=== PATIENT | male | born 1985 | race Caucasian/White ===

== ENCOUNTER → 2017-06-05 10:39 | Outpatient (CLI) | payer SELFPAY | PROVIDERS: PCP Nurse Practitioner Family; Visit Provider Nurse Practitioner Family | DX: Z02.4 Encounter for examination for driving license (principal) ==

== ENCOUNTER 2017-07-26 21:34 | Emergency (ER) | payer OTHER, SELFPAY ==
[2017-07-26 21:36] VITALS: BP 138/87; PULSE 88; RESP 18; TEMP 36.7; O2SAT 100; BMI 28.7
--- NOTE | 2017-07-26 21:45 | XR_ITS ---
XR chest 2V COMPARISON: PA and lateral chest 04/24/2015 HISTORY: Chest pain TECHNIQUE: PA and lateral chest FINDINGS: This is a somewhat poor inspiration however lung omalley are clear of infiltrate. Cardiac silhouette and vascularity are normal. There is minimal scarring or atelectasis at the left base. IMPRESSION: Minimal left basilar atelectasis or scarring otherwise negative chest
[2017-07-26 22:08] LABS: Basophils # 0.1 K/mm3 (0-0.2); Basophils % 0.8 % (0.1-2.0); Eosinophils # 0.4 K/mm3 (0.0-0.4); Eosinophils % 4.2 % (0.1-12.0); Hematocrit 43.6 % (42.0-52.0); Hemoglobin 14.1 g/dL (14.1-18.0); Lymphocytes # 3.9 K/mm3 (0.7-4.5); Lymphocytes % 39.2 K/mm3 (10-50); Mean Corpuscular HGB Conc 32.3 g/dL (31.8-35.4); Mean Corpuscular Hemoglobin 28.4 pg (27.0-31.2); Mean Corpuscular Volume 87.8 fl (80-94); Mean Platelet Volume 8.6 fl (7.4-10.4); Monocytes # 0.5 K/mm3 (0.1-1.0); Monocytes % 5.2 % (1.7-9.3); Neutrophils # 5.1 K/mm3 (1.8-7.8); Neutrophils % 50.6 % (37.0-80.0); Platelet Count 263 K/mm3 (142-424); Red Blood Count 4.97 M/mm3 (4.60-6.20); Red Cell Distribution Width 13.2 % (11.5-17.5)
--- NOTE | 2017-07-26 22:27 | HMH.EDCP ---
ED Disposition Clinical Impression: Chest pain Qualifiers: Chest pain type: precordial pain Qualified Code(s): R07.2 - Precordial pain Disposition: Home, Self-Care Condition on Discharge: Good Instructions: DI for Chest Pain Additional Instructions: see card in am at 0900 Referrals: Denisha Maddox PA [Primary Care Provider] - - Critical Care Critical Care Time: No Attestation: On 07/26/17, the high probability of a clinically significant, sudden or life threatening deterioration of the following system(s) required my full and direct attention, intervention and personal management. The time I documented below is in addition to time spent performing reported procedures but includes the following listed in this critical care notation. Medical Decision Making - Medical Records Medical records reviewed: Yes: I reviewed the patient's medical records. Vital Signs: 07/26/17 21:36 07/26/17 22:49 Temperature 98.1 F Temperature Source Oral Pulse Rate [Right Radial] 88 64 Respiratory Rate 18 16 Blood Pressure [Right Arm] 138/87 125/64 Blood Pressure Mean [Right Arm] 104 84 Blood Pressure Source [Right Arm] Automatic Cuff Blood Pressure Position [Right Arm] Sitting Supine 02 Sat by Pulse Oximetry 100 94 L Oxygen Delivery Method Room Air Room Air - Lab Data Lab results reviewed: Yes: I reviewed the patient's lab results. Lab Results 07/26/17 21:54: WBC 10.0, RBC 4.97, Hgb 14.1, Hct 43.6, MCV 87.8, MCH 28.4, MCHC 32.3, RDW 13.2, Plt Count 263, MPV 8.6, Neut % (Auto) 50.6, Lymph % (Auto) 39.2, [place] % (Auto) 5.2, Eos % (Auto) 4.2, Baso % (Auto) 0.8, Neut # (Auto) 5.1, Lymph # (Auto) 3.9, [place] # (Auto) 0.5, Eos # (Auto) 0.4, Baso # (Auto) 0.1 07/26/17 21:54: Sodium 145, Potassium 3.7, Chloride 108 H, Carbon Dioxide 28, Anion Gap 12.7, BUN 13, Creatinine 0.92, Estimated Creat Clear 148, Estimated GFR 95, Est GFR ( Amer) 115, Glucose 112 H, Calcium 8.2 L, Total Bilirubin 0.2, AST 20, ALT 48, Alkaline Phosphatase 67, Total Creatine Kinase 193, CK-MB (CK-2) 0.7, CK-MB (CK-2) Rel Index 0.4, Troponin I < 0.02, Total Protein 6.7, Albumin 3.4, Globulin 3.3 H, Albumin/Globulin Ratio 1.0 L 07/26/17 21:54: Triglycerides 213 H, Cholesterol 180, LDL Cholesterol 98, VLDL Cholesterol 43 H, HDL Cholesterol 39, Cholesterol/HDL Ratio 4.6 H 07/26/17 21:54: Hemoglobin A1c 5.9 Result diagrams: 07/26/17 21:54 07/26/17 21:54 Orders (Tests/Meds): ED MEDICATIONS Discontinued Medications Generic Name Dose Route Start Last Admin Trade Name Freq PRN Reason Stop Dose Admin Aspirin 324 mg 07/26/17 22:06 07/26/17 22:06 Aspirin 81mg Chewable Tablet PO 07/26/17 22:07 324 mg ONCE ONE Administration Nitroglycerin 0.4 mg 07/26/17 22:34 07/26/17 22:35 Nitrostat 0.4mg Sl Tablet SL 07/26/17 22:35 0.4 mg ONCE ONE Administration Nitroglycerin 0.4 mg 07/26/17 22:42 07/26/17 22:42 Nitrostat 0.4mg Sl Tablet SL 07/26/17 22:43 0.4 mg ONCE ONE Administration Nitroglycerin 1 gm 07/26/17 22:52 07/26/17 22:57 Nitroglycerin 1 Inch Oint Udp TD 07/26/17 22:53 1 gm ONCE ONE Administration ORDERS Category Date Time Status XR chest 2V Stat Exams 07/26/17 21:45 Taken Troponin I Timed Lab 07/26/17 23:59 Received ECG Request by /Lisa Stat Y 07/26/17 21:45 Ordered - Radiology Data #1 Image(s): Chest Image Reviewed: Yes I reviewed the patient's radiology image Preliminary Findings: Normal/NAD - ECG Data Tracing #1 I reviewed this ECG and interpreted as documented below: Normal Sinus Rhythm: Yes Ischemic changes: non-specific ST-T wave changes - Rocael Inquiry Pt receiving controlled substance: No Chest Pain HPI - General Chief Complaint: Chest Pain Stated Complaint: chest pain Time Seen by Provider: 07/26/17 22:27 Mode of Arrival: Ambulatory Source of Information: Patient, Spouse, Medical Record Limitations: No Limitations Description of Symptoms (Recall
[2017-07-26 22:32] LABS: Alanine Aminotransferase 48 U/L (12-78); Albumin Level 3.4 gm/dL (3.4-5.0); Alkaline Phosphatase 67 U/L (46-116); Anion Gap 12.7 mEq/L (5-15); Aspartate Amino Transferase 20 U/L (15-37); Bilirubin,Total 0.2 mg/dL (0.2-1.0); Blood Urea Nitrogen 13 mg/dL (7-18); CKMB Relative Index 0.4 U/L (0-4.0); Calcium 8.2 mg/dL (8.5-10.1); Carbon Dioxide 28 mmol/L (21.0-32.0); Chloride 108 mmol/L (98-107); Creatine Kinase 193 U/L (39-308); Creatine Kinase MB 0.7 mg/ml (0.0-3.6); Creatinine Clearance Estimated 148 mL/min (0-300); Creatinine,Serum 0.92 mg/dL (0.70-1.30); Estimated Glomerular Filt Rate 95 ml/min (>60); GFR (African American) 115 ML/MIN (>60); Globulin 3.3 gm/dl (1.3-3.2); Glucose 112 mg/dL (74-106); Potassium 3.7 mmoL/L (3.5-5.1); Sodium 145 mmol/L (136-145); Total Protein,Serum 6.7 gm/dL (6.4-8.2); Troponin I < 0.02 ng/ml (0.00-0.06)
[2017-07-26 22:45] LABS: Chol/HDL Ratio 4.6 (1-3.5); Cholesterol 180 mg/dL (140-200); HDL Cholesterol 39 mg/dL (27-67); LDL Cholesterol 98 mg/dL (0-130); Triglycerides 213 mg/dL (30-200); VLDL Cholesterol 43 mg/dL (0-40)
[2017-07-26 22:49] VITALS: BP 125/64; PULSE 64; RESP 16; O2SAT 94
--- NOTE | 2017-07-26 23:05 | PC.NURSE ---
DR JOE SPEAKING WITH DR MCKENZIE
[2017-07-27 00:04] LABS: Hemoglobin A1C 5.9 % (0.0-7.0)
[2017-07-27 00:35] LABS: Troponin I < 0.02 ng/ml (0.00-0.06)
[2017-07-27 00:49] VITALS: BP 116/68; PULSE 68; RESP 18; TEMP 36.7; O2SAT 98
== END 2017-07-27 00:49 | disposition home or self-care (01) ==
PROVIDERS: Emergency Provider Emergency Medicine; PCP Physician Assistant
DX: R07.2 Precordial pain (principal); F17.210 Nicotine dependence, cigarettes, uncomplicated; R05 Cough
CPT/HCPCS: 71046; 80053; 80061; 82550; 82553; 83036; 84484; 85025; 93005; 93041; 99283

== ENCOUNTER → 2017-08-06 09:34 | Outpatient (CLI) | payer OTHER, SELFPAY | PROVIDERS: PCP Physician Assistant; Visit Provider Internal Medicine | DX: R07.2 Precordial pain (principal); R06.02 Shortness of breath; F17.200 Nicotine dependence, unspecified, uncomplicated; Z82.49 Family history of ischemic heart disease and other diseases of the circulatory system; F41.9 Anxiety disorder, unspecified; R06.00 Dyspnea, unspecified; R06.01 Orthopnea | CPT/HCPCS: 93017 ==

== ENCOUNTER → 2017-08-10 12:58 | Outpatient (CLI) | payer OTHER, SELFPAY ==
--- NOTE | 2017-08-10 13:23 | CA_ITS ---
PROCEDURE: 2-D M-mode and color Doppler study INDICATIONS FOR THE TEST: Chest pain + COPD Heart Murmur Tobacco Smoking+ Palpitations Fatigue Syncope Edema Hypertension Diabetes Mellitus Rheumatic Fever SOB+JENSEN Obesity Hyperlipidemia Family History HD Additional History PATIENT INFORMATION HEIGHT: 70 WEIGHT:199 GENDER: Male B/P:119/80 2-D/M-MODE INTERPRETATION: 2-D MEASUREMENTS OBSERVED VALUES IN CMS Right Ventricular Dimension (RVDd) 3.1 Interventricular Septum (Thickness)(IVsd) 1.1 Left Ventricular Internal Dimensions(LVIDd) 5.1 Left Ventricular Posterior Wall (Thickness)(LVPWd) 0.9 Aortic Root 3.2 Aortic Cusp Separation 2.1 Left Atrial Dimensions (LAD) 3.9 2D 1. Left atrium is normal size, left ventricle is normal size, there is no concentric left ventricular hypertrophy, visually estimated ejection fraction of 55% with no obvious regional wall motion abnormality. 2. The right atrium is normal size, right ventricle is mildly enlarged with normal contractility. 3. The aortic valve is minimally thickened and fibrosed. 4. The mitral and tricuspid valvular grossly normal. 5. The pulmonic valve is poorly visualized. 6. No significant pericardial effusion noted. DOPPLER INTERROGATION: Doppler interrogation of the aortic, mitral and tricuspid valvular presence of mild mitral and tricuspid regurgitation, calculated right ventricular systolic pressure is 28 mmHg, diastolic parameters are within normal range. CONCLUSION: 1. Normal left ventricular size, preserved left ventricular systolic function, visually estimated ejection fraction 55% with no obvious regional wall motion abnormality, diastolic parameters are within normal range. 2. Mildly enlarged right ventricle with normal contractility. 3. Mild mitral and tricuspid regurgitation, calculated right ventricular systolic pressure is 28 mmHg 4. No significant pericardial effusion noted.
[2017-08-10 14:49] VITALS: PULSE 65; PULSE 70
== END ==
PROVIDERS: PCP Physician Assistant; Visit Provider Internal Medicine
DX: R06.02 Shortness of breath (principal); R07.2 Precordial pain; F17.200 Nicotine dependence, unspecified, uncomplicated; Z82.49 Family history of ischemic heart disease and other diseases of the circulatory system; F41.9 Anxiety disorder, unspecified; R06.01 Orthopnea
CPT/HCPCS: 93306; 94060; 94640; 94726; 94729

== ENCOUNTER → 2017-11-13 09:51 | Outpatient (CLI) | payer OTHER, SELFPAY ==
--- NOTE | 2017-11-13 09:52 | US_ITS ---
US thyroid HISTORY: Thyroid enlargement ITS.REASON: thyromegaly ORDERING PHYSICIAN: JIMMIE Dhillon PATIENT AGE: 32 years Comparison: None FINDINGS: The right lobe is 4.6 x 1.4 x 2.6 cm. There is coarse echogenicity of the right lobe. No discrete nodule. The left lobe is 4 x 1.3 x 1.5 cm also showing some coarse echogenicity without discrete nodule. The isthmus has an unremarkable appearance. IMPRESSION: Mild thyromegaly with course echogenicity without obvious nodule
--- NOTE | 2017-11-13 09:52 | FL_ITS ---
EXAM: Barium swallow/esophagram. INDICATION: ITS.REASON: diff swallowing ORDERING PHYSICIAN: JIMMIE Dhillon PATIENT AGE: 32 years COMPARISON: None TECHNIQUE: In the upright position the patient was observed to swallow barium in both the AP and lateral view. The cervical esophagus was examined under fluoroscopy with images obtained. The patient was then placed prone in the right anterior oblique position and was observed to swallow barium with Valsalva technique . FLUOROSCOPY TIME: 48 seconds FINDINGS: There was no evidence of aspiration. There was normal peristalsis. No filling defects or mucosal abnormalities. No masses or strictures. No evidence of hiatal hernia or reflux IMPRESSION: Negative barium swallow.
== END ==
PROVIDERS: PCP Physician Assistant; Visit Provider Physician Assistant
DX: E01.0 Iodine-deficiency related diffuse (endemic) goiter (principal)
CPT/HCPCS: 74220; 76536

== ENCOUNTER → 2018-01-25 10:16 | Outpatient (CLI) | payer OTHER, SELFPAY ==
--- NOTE | 2018-01-25 10:17 | MR_ITS ---
MR shoulder LT wo con HISTORY:Left shoulder pain with limited range of motion ITS.REASON: left shoulder pain ORDERING PHYSICIAN: JIMMIE Dhillon PATIENT AGE: 32 years Comparison: None TECHNIQUE: Standard multiplanar multiecho sequences are performed without contrast. FINDINGS: The acromion is slightly downsloping distally with mild subacromial stenosis at 5 mm. The acromioclavicular joint has an unremarkable appearance. There is thickening of the supraspinatus tendons with slight increased T2 signal consistent with tendinopathy/tendinosis. No definite rotator cuff tear. The glenoid arti have an unremarkable appearance. The subscapularis, teres minor, and infraspinatus tendons have an unremarkable appearance. The bicipital tendon is in place. There is a small amount fluid adjacent to the bicipital tendon. There is some bone marrow edema involving the anterior aspect of the humeral head. On T1-weighted images there is a small curvilinear area of decreased signal in the subarticular region anteriorly. Has the patient had recent trauma?. IMPRESSION: 1. No evidence of rotator cuff tear. 2. Mild subacromial stenosis with tendinopathy/tendinosis of the supraspinatus tendon. 3. Fluid within the bicipital tendon sheath suggesting tendinitis. 4 bone marrow edema within the anterior aspect of the humeral head etiology indeterminate. Possible bone bruise. As the patient had recent trauma? Subcortical decreased T1 signal noted. Possible early developing avascular necrosis. Please correlate with clinical findings.
== END ==
PROVIDERS: PCP Physician Assistant; Visit Provider Physician Assistant
DX: M25.512 Pain in left shoulder (principal)
CPT/HCPCS: 73221

== ENCOUNTER 2018-02-26 11:00 | Outpatient (RCR) | payer OTHER, SELFPAY ==
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
== END 2018-02-26 11:01 | disposition home or self-care (01) ==
LOC: OT 11:00
PROVIDERS: PCP Physician Assistant; Visit Provider Orthopaedic Surgery
DX: S43.402A Unspecified sprain of left shoulder joint, initial encounter (principal); M25.512 Pain in left shoulder
CPT/HCPCS: 97014; 97033; 97110; 97165; G0283

== ENCOUNTER → 2018-06-09 14:56 | Outpatient (CLI) | payer OTHER, SELFPAY | PROVIDERS: PCP Physician Assistant; Visit Provider Physician Assistant | DX: G47.00 Insomnia, unspecified (principal) | CPT/HCPCS: 95806 ==

== ENCOUNTER → 2018-06-22 20:09 | Outpatient (CLI) | payer OTHER, SELFPAY | PROVIDERS: PCP Physician Assistant; Visit Provider Physician Assistant | DX: R06.83 Snoring (principal); G47.00 Insomnia, unspecified; R40.0 Somnolence | CPT/HCPCS: 95810 ==

== ENCOUNTER → 2018-09-13 16:00 | Outpatient (CLI) | payer OTHER, SELFPAY ==
[2018-09-13 17:46] LABS: Ferritin 75 ng/mL (8-388)
== END ==
PROVIDERS: Visit Provider Specialist
DX: D50.9 Iron deficiency anemia, unspecified (principal); G25.81 Restless legs syndrome
CPT/HCPCS: 36415; 82728

== ENCOUNTER → 2019-01-04 13:37 | Outpatient (CLI) | payer OTHER, SELFPAY ==
[2019-01-04 14:23] LABS: Basophils # 0.1 K/mm3 (0-0.2); Basophils % 1.1 % (0.1-2.0); Eosinophils # 0.3 K/mm3 (0.0-0.4); Eosinophils % 4.2 % (0.1-12.0); Hemoglobin 15.7 g/dL (14.1-18.0); Lymphocytes # 2.3 K/mm3 (0.7-4.5); Lymphocytes % 33.1 % (10-50); Mean Corpuscular HGB Conc 32.7 g/dL (31.8-35.4); Mean Corpuscular Hemoglobin 28.5 pg (27.0-31.2); Mean Platelet Volume 7.9 fl (7.4-10.4); Monocytes # 0.4 K/mm3 (0.1-1.0); Monocytes % 5.3 % (1.7-9.3); Neutrophils # 3.9 K/mm3 (1.8-7.8); Neutrophils % 56.4 % (37.0-80.0); Platelet Count 308 K/mm3 (142-424); Red Blood Count 5.51 M/mm3 (4.60-6.20); Red Cell Distribution Width 13.3 % (11.5-17.5); White Blood Count 6.8 K/mm3 (4.8-10.8)
[2019-01-04 14:52] LABS: Alanine Aminotransferase 67 U/L (12-78); Albumin Level 3.7 gm/dL (3.4-5.0); Albumin/Globulin Ratio 1.1 (1.1-1.8); Alkaline Phosphatase 68 U/L (46-116); Anion Gap 13.3 mEq/L (5-15); Aspartate Amino Transferase 24 U/L (15-37); Bilirubin,Total 0.4 mg/dL (0.2-1.0); Blood Urea Nitrogen 12 mg/dL (7-18); Calcium 8.9 mg/dL (8.5-10.1); Carbon Dioxide 26 mmol/L (21.0-32.0); Chloride 106 mmol/L (98-107); Chol/HDL Ratio 5.1 (1-3.5); Cholesterol 202 mg/dL (140-200); Creatinine,Serum 0.94 mg/dL (0.70-1.30); Estimated Glomerular Filt Rate 92 ml/min (>60); GFR (African American) 112 ML/MIN (>60); Globulin 3.4 gm/dl (1.3-3.2); Glucose 106 mg/dL (74-106); HDL Cholesterol 40 mg/dL (27-67); LDL Cholesterol 132 mg/dL (0-130); Potassium 4.3 mmoL/L (3.5-5.1); Sodium 141 mmol/L (136-145); Total Protein,Serum 7.1 gm/dL (6.4-8.2); Triglycerides 151 mg/dL (30-200); VLDL Cholesterol 30 mg/dL (0-40)
[2019-01-04 20:44] LABS: Hemoglobin A1C 6.2 % (0.0-7.0)
[2019-01-05 11:14] LABS: Vitamin D 25 Hydroxy 21.2 ng/mL (30.0-100.0)
== END ==
PROVIDERS: Visit Provider Physician Assistant
DX: R53.83 Other fatigue (principal); R73.09 Other abnormal glucose; E55.9 Vitamin D deficiency, unspecified
CPT/HCPCS: 80053; 80061; 82652; 83036; 84436; 84443; 85025

== ENCOUNTER → 2019-03-08 13:00 | Outpatient (CLI) | payer OTHER, SELFPAY ==
--- NOTE | 2019-03-08 13:01 | MR_ITS ---
PROCEDURE: MR SHOULDER LT WO CON CLINICAL INDICATION: Persistent left shoulder pain, numbness, weakness Persistent left shoulder pain with numbness and popping with limited range of motion COMPARISON: SHOULDLTWO MR shoulder LT wo con from 01/25/2018 TECHNIQUE: Routine multiplanar multi echo sequences are performed without gadolinium enhancement. FINDINGS: There is subacromial stenosis with a downsloping acromion. The acromial humeral space is approximately 4 mm. There is mild thickening of the supraspinatus tendon. There is impingement upon the supraspinatus tendon from the low-lying acromion. The infraspinatus, subscapularis, and teres minor tendons are intact. There is a suspected SLAP tear of the superior glenoid labrum. There is a small shoulder joint effusion. Bicipital tendon is in place. Previously noted edema of the humeral head is not apparent on today's exam. IMPRESSION: 1. Subacromial stenosis with tendinopathy/tendinosis of the supraspinatus tendon with mild impingement upon the superior aspect of the supraspinatus tendon. No definite rotator cuff tear. 2. There does appear to be a an incomplete slap tear of the superior glenoid labrum with small shoulder joint effusion. Dictated by: Arsh Wilder MD 03/09/2019 14:41 Electronically signed by Arsh Wilder MD in [place] 03/09/2019 14:41
== END ==
PROVIDERS: PCP Physician Assistant; Visit Provider Physician Assistant
DX: M25.512 Pain in left shoulder (principal); M75.22 Bicipital tendinitis, left shoulder; R20.2 Paresthesia of skin; R29.898 Other symptoms and signs involving the musculoskeletal system
CPT/HCPCS: 73221

== ENCOUNTER → 2019-03-31 10:05 | Outpatient (CLI) | payer OTHER, SELFPAY ==
--- NOTE | 2019-03-31 10:13 | XR_ITS ---
PROCEDURE: XR SHOULDER LT MIN 2V CLINICAL INDICATION: Shoulder pain Posttraumatic pain COMPARISON: [id number] [id number] VIEWS from 08/22/2013 [id number] XR shoulder LT min 2V from 01/11/2018 FINDINGS: No fracture, dislocation, lytic change, or blastic change evident. No significant degenerative change. Small bone island is noted in the glenoid region inferiorly IMPRESSION: No acute findings. Dictated by: Arsh Wilder MD 03/31/2019 10:49 Electronically signed by Arsh Wilder MD in [place] 03/31/2019 10:49
--- NOTE | 2019-03-31 12:18 | XR_ITS ---
PROCEDURE: XR CHEST 2V CLINICAL HISTORY: pre op exam Tobacco use COMPARISON: CXR CHEST(2 VIEWS-NOT PORTABLE) from 04/24/2015 CXR2V XR chest 2V from 07/26/2017 CXR2V XR chest 2V from 10/21/2017 FINDINGS: The cardiomediastinal silhouette and pulmonary vascularity are within normal limits. The lungs are clear without infiltrates, suspicious nodules, or pleural effusions. No acute bony abnormalities. IMPRESSION: No acute findings. Dictated by: Arsh Wilder MD 03/31/2019 14:36 Electronically signed by Arsh Wilder MD in [place] 03/31/2019 14:36
[2019-03-31 13:12] LABS: Basophils # 0.1 K/mm3 (0-0.2); Basophils % 1.6 % (0.1-2.0); Eosinophils # 0.4 K/mm3 (0.0-0.4); Eosinophils % 5.6 % (0.1-12.0); Hematocrit 49.7 % (42.0-52.0); Hemoglobin 16.1 g/dL (14.1-18.0); Lymphocytes # 2.6 K/mm3 (0.7-4.5); Mean Corpuscular HGB Conc 32.4 g/dL (31.8-35.4); Mean Corpuscular Hemoglobin 29.2 pg (27.0-31.2); Mean Corpuscular Volume 90.3 fl (80-94); Mean Platelet Volume 8.4 fl (7.4-10.4); Monocytes # 0.3 K/mm3 (0.1-1.0); Monocytes % 4.7 % (1.7-9.3); Neutrophils # 3.6 K/mm3 (1.8-7.8); Neutrophils % 51.1 % (37.0-80.0); Platelet Count 313 K/mm3 (142-424); Red Cell Distribution Width 13.3 % (11.5-17.5); White Blood Count 7.1 K/mm3 (4.8-10.8)
[2019-03-31 14:53] LABS: Alanine Aminotransferase 79 U/L (12-78); Albumin Level 3.9 gm/dL (3.4-5.0); Albumin/Globulin Ratio 1.1 (1.1-1.8); Alkaline Phosphatase 66 U/L (46-116); Anion Gap 12.9 mEq/L (5-15); Aspartate Amino Transferase 36 U/L (15-37); Bilirubin,Total 0.4 mg/dL (0.2-1.0); Blood Urea Nitrogen 13 mg/dL (7-18); Calcium 9.4 mg/dL (8.5-10.1); Carbon Dioxide 27 mmol/L (21.0-32.0); Chloride 103 mmol/L (98-107); Creatinine,Serum 0.95 mg/dL (0.70-1.30); Estimated Glomerular Filt Rate 91 ml/min (>60); GFR (African American) 110 ML/MIN (>60); Globulin 3.5 gm/dl (1.3-3.2); Glucose 95 mg/dL (74-106); Potassium 4.9 mmoL/L (3.5-5.1); Sodium 138 mmol/L (136-145); Total Protein,Serum 7.4 gm/dL (6.4-8.2)
== END ==
PROVIDERS: PCP Emergency Medicine; Visit Provider Orthopaedic Surgery
DX: Z01.818 Encounter for other preprocedural examination (principal); M25.512 Pain in left shoulder
CPT/HCPCS: 36415; 71046; 73030; 80053; 85025

== ENCOUNTER → 2019-03-31 12:09 | Outpatient (CLI) | payer OTHER, SELFPAY | PROVIDERS: Visit Provider Orthopaedic Surgery | DX: Z01.818 Encounter for other preprocedural examination (principal) | CPT/HCPCS: 36415; 80053; 85025 ==

== ENCOUNTER → 2019-05-04 08:47 | Outpatient (CLI) | payer OTHER, SELFPAY ==
--- NOTE | 2019-05-04 08:53 | XR_ITS ---
PROCEDURE: XR SHOULDER LT MIN 2V CLINICAL INDICATION: recent fall; recent shoulder sx COMPARISON: No exams were available for comparison FINDINGS: The clavicle is intact and the AC joint appears normal. The humeral head and glenoid are normal. There are no soft tissue calcifications. IMPRESSION: Negative left shoulder Dictated by: Dr. Butch Aguilera MD 05/04/2019 17:[address] Butch Aguilera MD in [place] 05/04/2019 17:17
== END ==
PROVIDERS: PCP Physician Assistant; Visit Provider Orthopaedic Surgery
DX: S43.432A Superior glenoid labrum lesion of left shoulder, initial encounter (principal)
CPT/HCPCS: 73030

== ENCOUNTER 2019-07-27 08:30 | Outpatient (RCR) | payer OTHER, MEDICAID, SELFPAY ==
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
--- NOTE | 2019-06-07 09:37 | HMH.RHREAS ---
Rehab Reassessment Rehab OP Re-assessment Start: 06/07/19 08:39 Freq: Status: Active Protocol: Document 06/07/19 08:39 RASHAWN (Rec: 06/07/19 09:37 RASHAWN [id number]) Electronically Signed By Jas Rubalcava OT 06/07/19 08:39 Rehab Re-assessment Subjective Subjective It depends on what I'm doing if it hurts. Objective Objective Notes Pt continues to be seen twice a week in order to receive skilled OT services. Pt engages in L shoulder AROM/ AAROM/Strengthening exercises. Pt also receives PROM manual stretching to left shoulder. Modalities are provided in order to decrease pain such as e-stim and ice. Assessment Progress Assessment Progressing as Expected Assessment Notes Pt has been released back to work by doctor. Pt reports he is having minimal pain. Pt's AROM and strength are improving slowly. 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 Plan Plan Continue with OT plan of care at this time. Frequency of Therapy 2x's a week Duration of therapy 6 more weeks Time and Billing Re-Eval Time 15 Re-Eval Billing Units 1 PHYSICIAN CERTIFICATION: I certify the specified therapy services for Rogelio Zhao Roberto are required, authorized, and reviewed every 30 days.
--- NOTE | 2019-07-05 09:33 | HMH.RHREAS ---
Rehab Reassessment Rehab OP Re-assessment Start: 06/07/19 08:39 Freq: Status: Active Protocol: Document 07/05/19 08:32 RASHAWN (Rec: 07/05/19 09:32 RASHAWN [id number]) Electronically Signed By Jas Rubalcava OT 07/05/19 08:32 Rehab Re-assessment Subjective Subjective It is still painful. Objective Objective Notes Pt continues to be seen twice a week in order to receive skilled OT services. Pt engages in L shoulder AROM/ AAROM/Strengthening exercises. Pt also receives PROM manual stretching to left shoulder. Modalities are provided in order to decrease pain such as e-stim and ice. Assessment Progress Assessment Progressing as Expected Assessment Notes Pt has been back to work. Pt reports he is able to complete most activities with minimal pain. Pt's AROM has improved, but continues to be slightly limited in ER and IR; pt does complain of the most pain in external rotation. ER and IR are the two ways limited. Pain during no use of L shoulder: 0/10 Pain during use of L shoulder: 3/10 Current AROM/MMT of L Shouler Flex: 165 degrees; 4+ Abd: 160 degrees; 4+ ER: 68 degrees; 4 IR: 50 degrees; 4 Patient goals met Short term AROM goals have been met. 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 Plan Plan Continue with OT plan of care at this time. Frequency of Therapy 2x's a week Duration of therapy 4 more weeks Time and Billing Re-Eval Time 15 Re-Eval Billing Units 1 PHYSICIAN CERTIFICATION: I certify the specified therapy services for Rogelio Mejia are required, authorized, and reviewed every 30 days.
== END 2019-07-27 08:35 | disposition home or self-care (01) ==
LOC: OT 08:30
PROVIDERS: Visit Provider Orthopaedic Surgery
DX: S43.432A Superior glenoid labrum lesion of left shoulder, initial encounter (principal); M25.512 Pain in left shoulder
CPT/HCPCS: 97014; 97110; 97140; 97164; 97166; G0283

== ENCOUNTER → 2020-03-13 17:36 | Outpatient (CLI) | payer MEDICAID, SELFPAY ==
[2020-03-13 18:30] LABS: Basophils # 0.1 K/mm3 (0-0.2); Eosinophils # 0.2 K/mm3 (0.0-0.4); Eosinophils % 1.8 % (0.1-12.0); Hemoglobin 14.5 g/dL (14.1-18.0); Lymphocytes # 2.9 K/mm3 (0.7-4.5); Lymphocytes % 30.4 % (10-50); Mean Corpuscular HGB Conc 31.6 g/dL (31.8-35.4); Mean Corpuscular Hemoglobin 28.5 pg (27.0-31.2); Mean Corpuscular Volume 90.1 fl (80-94); Mean Platelet Volume 8.8 fl (7.4-10.4); Monocytes # 0.7 K/mm3 (0.1-1.0); Monocytes % 6.8 % (1.7-9.3); Neutrophils # 5.8 K/mm3 (1.8-7.8); Platelet Count 304 K/mm3 (142-424); Red Blood Count 5.11 M/mm3 (4.60-6.20); Red Cell Distribution Width 13.6 % (11.5-17.5); White Blood Count 9.6 K/mm3 (4.8-10.8)
[2020-03-13 18:39] LABS: Alanine Aminotransferase 44 U/L (12-78); Albumin/Globulin Ratio 1.5 (1.1-1.8); Alkaline Phosphatase 72 U/L (38-126); Aspartate Amino Transferase 32 U/L (17-59); Bilirubin,Total 0.3 mg/dl (0.2-1.3); Blood Urea Nitrogen 11 mg/dl (9-20); Calcium 9.2 mg/dl (8.4-10.2); Carbon Dioxide 25 mmol/L (22.0-30.0); Chloride 106 mmol/L (98-107); Chol/HDL Ratio 5.2 (1-3.5); Cholesterol 209 mg/dl (140-200); Estimated Glomerular Filt Rate 96 ml/min (>60); GFR (African American) 116 ML/MIN (>60); Globulin 2.7 g/dL (1.3-3.2); Glucose 101 mg/dl (74-100); HDL Cholesterol 40 mg/dl (40-60); Sodium 142 mmol/L (136-145); Total Protein,Serum 6.7 g/dl (6.3-8.2); Triglycerides 149 mg/dl (30-150); VLDL Cholesterol 30 mg/dL (0-40)
[2020-03-13 18:51] LABS: Direct LDL Cholesterol 134.31 mg/dL (100-129)
[2020-03-13 18:56] LABS: T4 (Thyroxine) 7.1 ug/dl (5.53-11.0)
[2020-03-13 19:09] LABS: Thyroid Stimulating Hormone 1.88 uIU/mL (0.465-4.68)
[2020-03-15 10:58] LABS: Testosterone,Total 154 ng/dL (264-916)
== END ==
PROVIDERS: Visit Provider Physician Assistant
DX: R68.82 Decreased libido (principal); I10 Essential (primary) hypertension; Z79.899 Other long term (current) drug therapy
CPT/HCPCS: 80053; 80061; 84403; 84436; 84443; 85025

== ENCOUNTER → 2020-03-16 18:51 | Outpatient (CLI) | payer MEDICAID, SELFPAY ==
[2020-03-23 17:31] LABS: Testosterone, Total, LC/MS 153.7 ng/dL (264.0-916.0); Testosterone,Free 3.3 pg/mL (8.7-25.1)
== END ==
PROVIDERS: Visit Provider Physician Assistant
DX: R68.82 Decreased libido (principal)
CPT/HCPCS: 84402; 84403

== ENCOUNTER → 2020-05-17 13:56 | Outpatient (CLI) | payer MEDICAID, SELFPAY ==
[2020-05-24 02:47] LABS: Testosterone, Total, LC/MS 254.7 ng/dL (264.0-916.0); Testosterone,Free 8.1 pg/mL (8.7-25.1)
== END ==
PROVIDERS: Visit Provider Urology
DX: R79.89 Other specified abnormal findings of blood chemistry (principal)
CPT/HCPCS: 36415; 84402; 84403

== ENCOUNTER 2020-05-19 22:15 | Emergency (ER) | payer MEDICAID, SELFPAY ==
[2020-05-19 22:15] VITALS: BP 180/110; PULSE 76; RESP 16; O2SAT 96; BMI 30.1
[2020-05-19 22:18] VITALS: BMI 69.5
--- NOTE | 2020-05-19 22:19 | XR_ITS ---
PROCEDURE: XR CHEST PORTABLE CLINICAL HISTORY: cp Chest pain, smoker COMPARISON: CR CXR2V XR chest 2V from 07/26/2017 CR CXR2V XR chest 2V from 10/21/2017 CR XR CHEST 2V from 03/31/2019 FINDINGS: The cardiomediastinal silhouette and pulmonary vascularity are within normal limits. The lungs are clear without infiltrates, suspicious nodules, or pleural effusions. No acute bony abnormalities. IMPRESSION: No acute findings. Dictated by: Arsh Wilder MD 05/20/2020 08:23 Arsh Wilder MD in [place] 05/20/2020 08:23
--- NOTE | 2020-05-19 22:19 | ECG_ITS ---
APPROVED REPORT Exam: Resting ECG HR:71 bpm ECG Measurements Heart Rate 71 AXES NH 126 P 59 QRSd 92 QRS 58 QT 390 T 11 QTc 423 Conclusion Normal sinus rhythm Incomplete right bundle branch block Borderline ECG Electronically signed by : Chong Kc, 05/20/2020 06:35:53
--- NOTE | 2020-05-19 22:27 | PC.NURSE ---
pt at bedside
[2020-05-19 22:32] LABS: Basophils # 0.1 K/mm3 (0-0.2); Basophils % 1.2 % (0.1-2.0); Eosinophils # 0.4 K/mm3 (0.0-0.4); Hematocrit 50.6 % (42.0-52.0); Lymphocytes # 4.9 K/mm3 (0.7-4.5); Lymphocytes % 45.8 % (10-50); Mean Corpuscular HGB Conc 33.5 g/dL (31.8-35.4); Mean Corpuscular Hemoglobin 28.7 pg (27.0-31.2); Mean Corpuscular Volume 85.5 fl (80-94); Mean Platelet Volume 8.7 fl (7.4-10.4); Monocytes # 0.6 K/mm3 (0.1-1.0); Monocytes % 5.5 % (1.7-9.3); Neutrophils # 4.6 K/mm3 (1.8-7.8); Neutrophils % 43.6 % (37.0-80.0); Platelet Count 317 K/mm3 (142-424); Red Blood Count 5.92 M/mm3 (4.60-6.20); Red Cell Distribution Width 13.7 % (11.5-17.5); White Blood Count 10.6 K/mm3 (4.8-10.8)
[2020-05-19 22:36] VITALS: BP 153/107; PULSE 59; RESP 16; O2SAT 99
[2020-05-19 22:38] LABS: Anion Gap 15.7 mEq/L (5-15); Blood Urea Nitrogen 10 mg/dl (9-20); Calcium 10.2 mg/dl (8.4-10.2); Carbon Dioxide 23 mmol/L (22.0-30.0); Chloride 104 mmol/L (98-107); Creatinine Clearance Estimated 118 mL/min (50-200); Estimated Glomerular Filt Rate 96 ml/min (>60); GFR (African American) 116 ML/MIN (>60); Glucose 143 mg/dl (74-100); Potassium 3.7 mmoL/L (3.5-5.1); Sodium 139 mmol/L (136-145)
[2020-05-19 22:45] VITALS: BP 122/90; PULSE 59; RESP 16; O2SAT 98
[2020-05-19 22:47] LABS: Ethyl Alcohol < 10 mg/dl (0-10)
--- NOTE | 2020-05-19 22:50 | HMH.EDCP ---
ED Disposition Clinical Impression: Chest pain Qualifiers: Chest pain type: unspecified Qualified Code(s): R07.9 - Chest pain, unspecified Cholelithiasis Qualifiers: Cholelithiasis location: gallbladder Cholecystitis presence: without cholecystitis Biliary obstruction: without biliary obstruction Qualified Code(s): K80.20 - Calculus of gallbladder without cholecystitis without obstruction Disposition: Home, Self-Care Condition on Discharge: Good Instructions: DI for Gallstones Additional Instructions: see pcp for thursday at 1300 npo after mn Referrals: Denisha Maddox PA [Primary Care Provider] - - Critical Care Critical Care Time: No Attestation: On 05/19/20, the high probability of a clinically significant, sudden or life threatening deterioration of the following system(s) required my full and direct attention, intervention and personal management. The time I documented below is in addition to time spent performing reported procedures but includes the following listed in this critical care notation. Medical Decision Making - Medical Records Medical records reviewed: Yes: I reviewed the patient's medical records. - Rocael Inquiry Pt receiving controlled substance: No Vital Signs: 05/19/20 22:15 05/19/20 22:36 05/19/20 22:45 Pulse Rate [Left Radial] 76 59 L 59 L Respiratory Rate 16 16 16 Blood Pressure [Right Arm] 180/110 H 153/107 H 122/90 Blood Pressure Mean [Right Arm] 133 122 100 Blood Pressure Source [Right Arm] Automatic Cuff Automatic Cuff Automatic Cuff Blood Pressure Position [Right Arm] Sitting Sitting Sitting 02 Sat by Pulse Oximetry 96 99 98 Oxygen Delivery Method Room Air Nasal Cannula Nasal Cannula Oxygen Flow Rate (LPM) 2 05/19/20 23:15 05/20/20 00:30 05/20/20 01:00 Pulse Rate [Left Radial] 63 71 62 Respiratory Rate 15 16 16 Blood Pressure [Right Arm] 102/66 L 131/70 122/86 Blood Pressure Mean [Right Arm] 78 90 98 Blood Pressure Source [Right Arm] Automatic Cuff Automatic Cuff Automatic Cuff Blood Pressure Position [Right Arm] Sitting Sitting Sitting 02 Sat by Pulse Oximetry 98 96 94 L Oxygen Delivery Method Room Air Room Air Room Air Oxygen Flow Rate (LPM) - Lab Data Lab results reviewed: Yes: I reviewed the patient's lab results. Lab Results 05/19/20 22:16: WBC 10.6, RBC 5.92, Hgb 17.0, Hct 50.6, MCV 85.5, MCH 28.7, MCHC 33.5, RDW 13.7, Plt Count 317, MPV 8.7, Neut % (Auto) 43.6, Lymph % (Auto) 45.8, [place] % (Auto) 5.5, Eos % (Auto) 4.0, Baso % (Auto) 1.2, Neut # (Auto) 4.6, Lymph # (Auto) 4.9 H, [place] # (Auto) 0.6, Eos # (Auto) 0.4, Baso # (Auto) 0.1 05/19/20 22:16: Sodium 139, Potassium 3.7, Chloride 104, Carbon Dioxide 23, Anion Gap 15.7 H, BUN 10, Creatinine 0.90, Estimated Creat Clear 118, Estimated GFR 96, Est GFR ( Amer) 116, Glucose 143 H, Calcium 10.2, Troponin I < 0.01, TSH 2.21 05/19/20 22:16: Free T4 1.03 05/19/20 22:16: Plasma/Serum Alcohol < 10 05/19/20 22:16: Total Bilirubin 0.4, Direct Bilirubin 0.2, Conjugated Bilirubin 0.0, Indirect Bilirubin 0.2, Unconjugated Bilirubin 0.2, AST 43, ALT 47, Alkaline Phosphatase 76, Total Protein 8.3 H, Albumin 4.8, Amylase 69, Lipase 99 Result diagrams: 05/19/20 22:16 05/19/20 22:16 Orders (Tests/Meds): ED MEDICATIONS Generic Name Dose Route Start Last Admin Trade Name Freq PRN Reason Stop Dose Admin Sodium Chloride 1,000 mls @ 999 mls/hr 05/19/20 23:15 05/19/20 23:07 Sod Chlor 0.9% 1000ml Bag IV 05/20/20 00:15 999 mls/hr .Q1H1M JUANIS Administration Nitroglycerin 0.4 mg 05/19/20 22:19 05/19/20 22:22 Nitroglycerin 0.4mg Sl Tablet SL 06/18/20 22:18 1 tab Q5MINP PRN Administration Chest Pain Sodium Chloride 8 ml 05/19/20 22:19 Sodium Chloride 0.9% 10ml Vial IV 06/18/20 22:18 NEEDED PRN dilute pepcid Sodium Chloride 10 ml 05/19/20 23:02 Sodium Chloride 0.9% 10ml Vial IV 06/18/20 23:01 NEEDED PRN to Dilute Lorazepam inj Discontinued Medic
[2020-05-19 22:55] LABS: Free T4 (Free Thyroxine) 1.03 ng/dl (0.78-2.19)
[2020-05-19 23:06] LABS: Alanine Aminotransferase 47 U/L (12-78); Albumin Level 4.8 g/dl (3.5-5.0); Alkaline Phosphatase 76 U/L (38-126); Amylase 69 U/L (30-110); Aspartate Amino Transferase 43 U/L (17-59); Bilirubin,Direct 0.2 mg/dl (0.0-0.4); Bilirubin,Indirect 0.2 mg/dL (0.0-0.9); Bilirubin,Total 0.4 mg/dl (0.2-1.3); Bilirubin,Unconjugated 0.2 mg/dL (0.0-1.1); Lipase 99 U/L (23-300); Total Protein,Serum 8.3 g/dl (6.3-8.2)
[2020-05-19 23:07] LABS: Troponin I < 0.01 ng/ml (0.00-0.034)
[2020-05-19 23:09] LABS: Thyroid Stimulating Hormone 2.21 uIU/mL (0.465-4.68)
[2020-05-19 23:15] VITALS: BP 102/66; PULSE 63; RESP 15; O2SAT 98
--- NOTE | 2020-05-20 00:01 | PC.NURSE ---
pt to RAD
--- NOTE | 2020-05-20 00:02 | CT_ITS ---
PROCEDURE: CT ABDOMEN PELVIS W CON CLINICAL INDICATION: abd pain Severe epigastric pain COMPARISON: No exams were available for comparison TECHNIQUE: IV Contrast: 75ML Isovue 370 Oral Contrast None Axial images obtained with sagittal and coronal reformats. All CT scans at the facility use one or more dose reduction, viz: automated exposure control, ma/kV adjustment per patient size (including targeted exams where dose is matched to indication, i.e. head), or iterative reconstruction technique. FINDINGS: LOWER THORAX: No acute finding ABDOMEN & PELVIS: There is a gallstone present measuring approximately 2 cm. There was questionable thickening of the gallbladder wall. The spleen, adrenal glands, pancreas, and kidneys have an unremarkable appearance. There is a 7 mm hypodensity in the right hepatic lobe image 35 nonspecific. Follow-up may confirm stability. There is mild thickening versus nondistention of the rectosigmoid region. Unremarkable appendix. No intestinal obstruction or free air. No pelvic mass or abnormal fluid collection. No evidence of diverticulitis. Tiny umbilical hernia noted containing fat. No acute bony findings. Small bone island is present in the femurs proximally. IMPRESSION: 1. Cholelithiasis. There is questionable thickening of the gallbladder wall. Gallbladder ultrasound may provide further evaluation. 2. Mild thickening of the rectosigmoid region which could be due to nondistention or colitis/proctitis. 3. Nonspecific hypodensity of the liver. Follow-up may confirm stability. Dictated by: Arsh Wilder MD 05/20/2020 09:38 Arsh Wilder MD in [place] 05/20/2020 09:38
--- NOTE | 2020-05-20 00:24 | PC.NURSE ---
pt back from RAD
[2020-05-20 00:30] VITALS: BP 131/70; PULSE 71; RESP 16; O2SAT 96
--- NOTE | 2020-05-20 00:43 | PC.NURSE ---
speaking with Dr. De
[2020-05-20 01:00] VITALS: BP 122/86; PULSE 62; RESP 16; O2SAT 94
[2020-05-20 01:36] VITALS: BP 120/82; PULSE 71; RESP 16; TEMP 36.8; O2SAT 96
== END 2020-05-20 01:42 | disposition home or self-care (01) ==
PROVIDERS: Emergency Provider Emergency Medicine; PCP Physician Assistant
DX: K80.20 Calculus of gallbladder without cholecystitis without obstruction (principal); K21.9 Gastro-esophageal reflux disease without esophagitis; I10 Essential (primary) hypertension; F41.9 Anxiety disorder, unspecified; Z87.891 Personal history of nicotine dependence; Z79.899 Other long term (current) drug therapy
CPT/HCPCS: 71045; 74177; 80048; 80076; 82150; 83690; 84439; 84443; 84484; 85025; 93005; 96365; 96366; 96375; 99283; J2405; Q9967

== ENCOUNTER → 2020-05-21 15:34 | Outpatient (CLI) | payer MEDICAID, SELFPAY ==
--- NOTE | 2020-05-21 15:36 | US_ITS ---
PROCEDURE: US ABDOMEN LIMITED CLINICAL INDICATION: epigastric pain Epigastric pain. Right upper quadrant tenderness COMPARISON: CT CT ABDOMEN PELVIS W CON from 05/20/2020 FINDINGS: PANCREAS: Unremarkable. No obvious mass or abnormal fluid collection. No ductal dilatation LIVER: There is a hypoechoic area anterior to the portal vein measuring 19 x 16 mm.. Homogeneous echogenicity. No intrahepatic biliary ductal dilatation evident. There is appropriate direction of blood flow within a non dilated portal vein RIGHT KIDNEY: Unremarkable. Normal size and echogenicity. No hydronephrosis GALLBLADDER: Gallbladder is contracted with thickened wall measuring up to 6 mm. There is a gallstone present in the neck of the gallbladder. No pericholecystic fluid. No biliary dilatation. Common bile duct measures 3 mm.. There appears to be a small gallbladder polyp in the fundus of the gallbladder measuring 5 mm. There may also be a small amount of pericholecystic fluid. Technologist reports that the patient is tender to palpation over the gallbladder with transducer. IMPRESSION: 1. Contracted gallbladder with edematous wall with cholelithiasis at and possible small amount of pericholecystic fluid. Technologist reports that the patient is tender to palpation over the gallbladder with transducer. Cholecystitis is considered. 2. Possible small gallbladder polyp. 3. Nonspecific 19 mm hypoechoic area in the left lobe of the liver anterior to the portal vein. This is of questionable clinical significance. Follow-up may confirm stability. Dictated by: Arsh Wilder MD 05/22/2020 07:21 Arsh Wilder MD in [place] 05/22/2020 07:21
== END ==
PROVIDERS: PCP Physician Assistant; Visit Provider Physician Assistant
DX: R10.13 Epigastric pain (principal)
CPT/HCPCS: 76705

== ENCOUNTER → 2020-06-02 12:53 | Outpatient (CLI) | payer MEDICAID, SELFPAY ==
[2020-06-02 14:29] LABS: Coronavirus 19 IgG Antibody Negative (Negative); Coronavirus 19 IgM Antibody Negative (Negative)
== END ==
PROVIDERS: Visit Provider Surgery
DX: Z01.818 Encounter for other preprocedural examination (principal); Z11.52 Encounter for screening for COVID-19; K80.10 Calculus of gallbladder with chronic cholecystitis without obstruction; K76.9 Liver disease, unspecified
CPT/HCPCS: 36415; 86328

== ENCOUNTER 2020-06-04 10:38 | Day surgery (SDC) | payer MEDICAID, SELFPAY ==
[2020-06-04] VITALS (14 sets, daily range): BP systolic 120–143; BP diastolic 71–91; PULSE 56–89; RESP 12–23; TEMP 36.6–43; O2SAT 93–100; BMI 31.5
--- NOTE | 2020-06-04 13:44 | HMH.ANESCL ---
[facility] Anesthesia Checklist - Structural Data Admitted From: Home Planned Operative Procedure/s: kevin patele Consent for Planned Operative Procedure(s) Verified: Yes - Additional verifications Anesthesia Reactions: No Hx Blood Transfusions: No Blood Transfusion Reaction: No - Airway Assessment C-Spine Mobility Assessed: Yes TMJ Mobility Assessed: Yes Dentition: Dentures-good fit - Neurological Assessment Level of Consciousness: Awake, Alert, Appropriate - Anesthesia Plan Anesthesia Risk discussed: Yes Anesthesia Plan: Verified ASA Class: II Anesthesia Type: General [facility] History I have reviewed the patient's past medical history: Yes Medical History: Reports:: Anxiety, Hypertension Denies:: Cancer, Diabetes Mellitus Type 1, Diabetes Mellitus Type 2, Gastroesophageal Reflux Disease(GERD), Internal Pacemaker, MRSA, Seizures *Have you ever received a pneumonia vaccine?: No *Have you received a flu vaccine this season?: No Other Medical History: Reports: Other. Denies: Blood Transfusion Reaction Anesthesia experience/problems:: none Laterality Cases: Left: Arthroscopy Shoulder Other Surgeries: Yes: No Previous Surgery, Other (dental). No: Pacemaker Amputation: No Fractures: Yes (left arm) - *Social History Smoking Status: Current every day smoker Tobacco Type: cigarettes # Packs/Day (cigarettes): 1 Alcohol Intake: never Alcohol Intake Frequency:: holidays/special occasions only Substance Use Type: denies use *Occupational Status:: employed Housing: house Household Members: spouse *Travel in the last 8 weeks: None - Psychiatric History Pschychiatric History:: Reports:: Anxiety Family Hx:: Hypertension, Cancer, Stroke, Diabetes
--- NOTE | 2020-06-04 15:01 | HMH.OPNOTE ---
Date of procedure: 06/04/20 Pre-op Diagnosis:: Chronic calculus cholecystitis Post-op Diagnosis:: Same Procedure performed:: Laparoscopic cholecystectomy Surgeon:: New Nicole MD Devops Architect(s):: Jessica [employer] DIV[employer]:: Esteban Morris Anesthesia: GETA Estimated blood loss (mL): 10 Operative findings:: Significant pericholecystic fat stranding Fairly severe infundibular thickening Operative note:: After informed consent was obtained, the patient was taken to the operating room and placed in the supine position. General anesthesia was induced and the abdomen was prepped and draped in a sterile fashion. After infiltration with local anesthetic an infraumbilical incision was made. A Veress needle was placed in position. The abdomen was insufflated. A 5 mm optical trocar was placed in position. Under direct visualization, a 12 mm trocar was placed in the subxiphoid position and 2 additional 5 mm trocars were placed in the right upper quadrant. The gallbladder was elevated up and over the liver margin. The tissue around the cystic duct was carefully dissected. 3 clips were placed proximally and the duct was transected with harmonic radha. The cystic artery was freed from surrounding tissue. A clip was placed proximally and the artery was then transected distally with harmonic radha. Harmonic radha were then utilized to dissect the gallbladder away from the liver margin. The gallbladder was placed in a retrieval bag and removed through the subxiphoid trocar site. The right upper quadrant was thoroughly irrigated. No active bleeding or bile leak was noted. Fascia at the subxiphoid trocar site was reapproximated utilizing 0 Ethibond. The remaining trocars were removed. All wounds were irrigated and skin was closed with 4-0 Monocryl in a subcuticular fashion. Steri-Strips were applied. The patient's anesthetic agents were reversed and extubation was completed prior to transfer to recovery in stable condition. Condition: stable Disposition: PACU Specimens:: Gallbladder and contents Complications:: No immediate
--- NOTE | 2020-06-04 15:23 | P.PN_ITS ---
[facility] Anesthesia Record Part I Intake, IV Amount: 1,500 Estimated blood loss (mL): 0 Urine output (mL): 0 Blood Pressure: 128/73 SaO2: 94 Pulse Rate: 63 Respiratory Rate: 12 Temperature: 97.8 F Patient is:: Awake, Stable Stable to PACU at:: 15:20
--- NOTE | 2020-06-05 09:20 | P.PN_ITS ---
[facility] Anesthesia Record Part II Discharge Time: 15:50 Destination: [facility] PACU nurse assessment reviewed?: Yes Patient Condition:: Good Anesthesia Complications:: None Swallowing reflex intact?: Yes Cyanosis?: No Blood Pressure: 125/71 Pulse Rate: 89 Temperature: 97.9 F Mental Status: Alert & Oriented Pain level:: 2 Nausea and/or vomitting:: None Intake, IV Amount: 1,500
[2020-06-05 09:21] VITALS: BP 125/71; PULSE 89; TEMP 36.6
== END 2020-06-04 16:55 | disposition home or self-care (01) ==
PROVIDERS: PCP Emergency Medicine; Visit Provider Surgery
PROC: 0FT44ZZ Resection of Gallbladder, Percutaneous Endoscopic Approach (ICD-10-PCS; CPT 47562; principal; 2020-06-04 12:15)
DX: K80.10 Calculus of gallbladder with chronic cholecystitis without obstruction (principal); I10 Essential (primary) hypertension; F41.9 Anxiety disorder, unspecified; Z87.39 Personal history of other diseases of the musculoskeletal system and connective tissue; Z72.0 Tobacco use; Z79.899 Other long term (current) drug therapy
CPT/HCPCS: 47562; 96374; J2405; J2710

== ENCOUNTER → 2020-09-27 15:14 | Outpatient (CLI) | payer OTHER, SELFPAY ==
--- NOTE | 2020-09-27 15:23 | XR_ITS ---
PROCEDURE: XR SHOULDER LT MIN 2V CLINICAL INDICATION: s/p Lt shoulder arthroscopy; recent pain COMPARISON: CR SHOULDCMLT XR shoulder LT min 2V from 01/11/2018 CR XR SHOULDER LT MIN 2V from 03/31/2019 CR XR SHOULDER LT MIN 2V from 04/07/2019 CR XR SHOULDER LT MIN 2V from 05/04/2019 FINDINGS: No fracture or dislocation. No lytic or blastic change. There is normal mineralization. The joint spaces are well-preserved. No significant degenerative/arthritic changes. No erosive changes evident. Lucency is once again noted in the proximal shaft of the humerus which may be due to prior bicipital transfer surgery IMPRESSION: No change with no acute finding Dictated by: Arsh Wilder MD 09/27/2020 17:40 Arsh Wilder MD in [place] 09/27/2020 17:40
== END ==
PROVIDERS: PCP Nurse Practitioner; Visit Provider Orthopaedic Surgery
DX: M25.512 Pain in left shoulder (principal)
CPT/HCPCS: 73030

== ENCOUNTER 2020-10-19 15:00 | Outpatient (RCR) | payer OTHER, SELFPAY ==
--- NOTE | 2020-10-03 15:52 | HMH.OTOPEV ---
OT Inpatient Evaluation Rehab OT Outpatient Eval Start: 10/03/20 15:41 Freq: Status: Active Protocol: Document 10/03/20 15:41 CHERINICOLAS (Rec: 10/03/20 15:51 CHERINICOLAS [id number]) Electronically Signed By Vikki Harden OT 10/03/20 15:41 Outpatient Therapy Subjective History Subjective History 35-year-old gentleman with a chief complaint of left shoulder pain, seen by me previously. Surgery was performed on patient's right shoulder 04/07/2019; L shoulder arthroscopy, subacromial decompression w/acromioplasty, anterior labral repair, biceps tenodesis (open subpectoral). He went on to do well postoperatively and had no problems with the shoulder until recently. He fell a few weeks ago and as he went down, caught himself with that arm, jerking an upward and rough fashion and then landing on the left shoulder. Pain is anterior lateral location, exacerbated by sleeping and driving or using the arm with overhead motion. He has tried icing and ibuprofen with no relief. Pain is rated a 5 out of 10 at rest, 10 out of 10 at worst . No open wounds, no bruising , no numbness or tingling in the arm. No neck pain. He is a smoker, [id number] . Chief Complaint Pain,Weakness Symptom Type Ache Symptoms Relieved By Nothing Symptoms Aggravated By Physical Activity,Lifting Prior Functional Limitations None Current Functional Limitations Reaching,Lifting,Driving, Sleeping,Recreation Activity Symptom Description Constant and Continuous Level of pain today (0-10) 6 Pain scale - at its best (0-10) 6 Pain scale - at its worst (0-10) 9 Shoulder/Elbow Eval Shoulder Objective Measurements Shoulder ROM Right Shoulder Abduction Active Range of 80 Motion (degrees) Shoulder Flexion Active Range of Motion 100 (degrees) Query Text: Sh
== END 2020-10-19 15:05 | disposition home or self-care (01) ==
LOC: OT 15:00
PROVIDERS: PCP Nurse Practitioner; Visit Provider Orthopaedic Surgery
DX: S46.912A Strain of unspecified muscle, fascia and tendon at shoulder and upper arm level, left arm, initial encounter (principal)
CPT/HCPCS: 97014; 97035; 97110; 97140; 97165; G0283

== ENCOUNTER → 2020-11-16 14:53 | Outpatient (CLI) | payer OTHER, SELFPAY ==
--- NOTE | 2020-11-16 14:58 | CA_ITS ---
APPROVED REPORT EXAM: Comprehensive 2D, Doppler, and color-flow Echocardiogram College Dean: Mitra Yeung RVT Ht: 5 ft 10 in Wt: 210lbs BSA: 2.13 BP: 134/87 mmHg Indications: HTN,SMOKER 2D Dimensions LVOT 2.29 cm (M/F) 1.5-2.5 LA Volume 24.30 mL LA Volume Index 11.40 mL/m2 (M/F) 16-34 M-Mode Dimensions RVDd 2.96 cm (0.9-2.6) LA Diam 3.58 cm (1.9-4.0) LVDd 4.79 cm (3.5-5.7) Ao Diam 2.86 cm (2.0-3.7) LVDs 2.66 cm (3.5-5.7) IVSd 1.03 cm (0.6-1.1) PWd 0.57 cm (0.6-1.1) EF (Teich) 75.70% FS 44.50% EDV (Teich) 107.00 mL TAPSE 1.41 (<1.7) ESV (Teich) 26.00 mL LV Diastology E Decel Time 233.00 (160-240 msec) E/A Ratio 1.1 MED E' 6.90 (< 7 cm/sec) E'/MED E' Ratio 8.13 (>14) LAT E' 10.90 (<10 cm/sec) E/LAT E' Ratio 5.15 (>14) Aortic Valve AO Peak GR. 3.20 mmHg Mitral Valve MV E Max Tyrel. 56.00 (40-130 cm/s) MV A Velocity 49.00 (40-130 cm/s) E/A Ratio 1.14 MV Decel. Time 233.00 (160-240 ms) MV PHT 68.00 ms Pulmonary Valve PV Peak Velocity 78.00 (50-150 cm/s) Tricuspid Valve TR P. Velocity 126.00 cm/s RAP Estimate 10.00 mmHg RVSP 16.30 mmHg Left Ventricle Left atrium is mildly enlarged, left ventricle is normal size, mild concentric left ventricular hypertrophy, visually estimated ejection fraction 55% with no regional wall motion abnormality. Grade 1 diastolic dysfunction seen without tissue Doppler evidence of raise left atrial pressure. Right Ventricle Right atrium and right ventricle mildly enlarged with normal contractility. Aortic Valve Aortic valve is minimally thickened and fibrosed, there is no aortic stenosis or aortic insufficiency. Mitral Valve Mitral valve is grossly normal, there is trace mitral regurgitation. Tricuspid Valve Tricuspid valve grossly normal, there is trace tricuspid regurgitation, tricuspid regurgitation jet velocity is inadequate for calculation of the right ventricular systolic pressure. Pulmonic Valve Pulmonic valve is poorly visualized. Great Vessels Aortic root is normal size. Pericardium No significant pericardial effusion noted. Conclusion 1. Mild biatrial enlargement, normal left ventricular size, mild concentric left ventricular hypertrophy, visually estimated ejection fraction 55% with no regional wall motion abnormality, grade 1 diastolic dysfunction seen without tissue Doppler evidence of raise left atrial pressure. 2. Mildly enlarged right ventricle with normal contractility. 3. No significant pericardial effusion noted, inferior vena cava is normal size with normal inspiratory collapse. Electronically signed by : Elieser Pinto, 11/19/2020 09:21:16
== END ==
PROVIDERS: PCP Nurse Practitioner; Visit Provider Nurse Practitioner
DX: I10 Essential (primary) hypertension (principal)
CPT/HCPCS: 93306

== ENCOUNTER → 2021-01-21 19:21 | Outpatient (CLI) | payer OTHER, SELFPAY ==
[2021-01-21 19:50] LABS: Adenovirus,PCR Not Detected (NotDetected); Bordetella Pertussis Not Detected (NotDetected); Chlamydophila Pneumoniae, PCR Not Detected (NotDetected); Coronavirus 19, PCR Not Detected (NotDetected); Coronavirus 229E Not Detected (NotDetected); Coronavirus NL63 Not Detected (NotDetected); Coronavirus OC43 Not Detected (NotDetected); Coronovirus HKU1,PCR Not Detected (NotDetected); Human Metapneumovirus Not Detected (NotDetected); Influenza A, PCR Not Detected (NotDetected); Influenza AH1, 2009 Not Detected (NotDetected); Influenza AH1, PCR Not Detected (NotDetected); Influenza AH3,PCR Not Detected (NotDetected); Influenza B, PCR Not Detected (NotDetected); Mycoplasma Pneumoniae, PCR Not Detected (NotDetected); Parainfluenza 1, PCR Not Detected (NotDetected); Parainfluenza 2, PCR Not Detected (NotDetected); Parainfluenza 3, PCR Not Detected (NotDetected); Parainfluenza 4, PCR Not Detected (NotDetected); Respiratory Syncytial Virus Not Detected (NotDetected); Rhinovirus/Enterovirus Not Detected (NotDetected)
[2021-01-21 19:56] LABS: Basophils # 0.2 K/mm3 (0-0.2); Basophils % 1.1 % (0.1-2.0); Eosinophils # 0.2 K/mm3 (0.0-0.4); Eosinophils % 1.4 % (0.1-12.0); Hemoglobin 15.8 g/dL (14.1-18.0); Lymphocytes # 3.8 K/mm3 (0.7-4.5); Lymphocytes % 29.8 % (10-50); Mean Corpuscular HGB Conc 32.9 g/dL (31.8-35.4); Mean Corpuscular Volume 88.3 fl (80-94); Mean Platelet Volume 8.3 fl (7.4-10.4); Monocytes # 0.6 K/mm3 (0.1-1.0); Monocytes % 4.6 % (1.7-9.3); Neutrophils # 8.2 K/mm3 (1.8-7.8); Neutrophils % 63.2 % (37.0-80.0); Platelet Count 359 K/mm3 (142-424); Red Blood Count 5.44 M/mm3 (4.60-6.20); Red Cell Distribution Width 13.8 % (11.5-17.5); White Blood Count 12.9 K/mm3 (4.8-10.8)
[2021-01-21 20:08] LABS: Strep Scrn Group A (Rapid) Negative (Negative)
== END ==
PROVIDERS: PCP Nurse Practitioner; Visit Provider Nurse Practitioner Family
DX: Z20.822 Contact with and (suspected) exposure to COVID-19 (principal)
CPT/HCPCS: 36415; 85025; 87430; 87581; 87633; 87798

== ENCOUNTER → 2021-03-20 18:59 | Outpatient (CLI) | payer OTHER, SELFPAY ==
[2021-03-20 19:52] LABS: Strep Scrn Group A (Rapid) Negative (Negative)
[2021-03-20 20:10] LABS: Basophils # 0.1 K/mm3 (0-0.2); Eosinophils # 0.3 K/mm3 (0.0-0.4); Hemoglobin 14.7 g/dL (14.1-18.0); Lymphocytes % 26.5 % (10-50); Mean Corpuscular HGB Conc 32.1 g/dL (31.8-35.4); Mean Corpuscular Hemoglobin 29.4 pg (27.0-31.2); Mean Corpuscular Volume 91.5 fl (80-94); Monocytes # 0.7 K/mm3 (0.1-1.0); Monocytes % 6.1 % (1.7-9.3); Neutrophils # 7.2 K/mm3 (1.8-7.8); Neutrophils % 63.4 % (37.0-80.0); Platelet Count 301 K/mm3 (142-424); Red Blood Count 5.02 M/mm3 (4.60-6.20); Red Cell Distribution Width 13.4 % (11.5-17.5); White Blood Count 11.3 K/mm3 (4.8-10.8)
== END ==
PROVIDERS: PCP Nurse Practitioner; Visit Provider Nurse Practitioner
DX: Z20.822 Contact with and (suspected) exposure to COVID-19 (principal)
CPT/HCPCS: 36415; 85025; 87430; C9803; U0003; U0005

== ENCOUNTER → 2021-06-05 15:08 | Outpatient (CLI) | payer OTHER, SELFPAY ==
[2021-06-05 16:03] LABS: Basophils # 0.3 K/mm3 (0-0.2); Eosinophils # 0.2 K/mm3 (0.0-0.4); Eosinophils % 2.4 % (0.1-12.0); Hematocrit 44.7 % (42.0-52.0); Hemoglobin 15.1 g/dL (14.1-18.0); Lymphocytes # 1.3 K/mm3 (0.7-4.5); Mean Corpuscular HGB Conc 33.7 g/dL (31.8-35.4); Mean Corpuscular Hemoglobin 29.6 pg (27.0-31.2); Mean Corpuscular Volume 87.6 fl (80-94); Mean Platelet Volume 8.5 fl (7.4-10.4); Monocytes # 0.7 K/mm3 (0.1-1.0); Monocytes % 9.6 % (1.7-9.3); Neutrophils # 4.8 K/mm3 (1.8-7.8); Platelet Count 303 K/mm3 (142-424); Red Cell Distribution Width 13.6 % (11.5-17.5); White Blood Count 7.2 K/mm3 (4.8-10.8)
[2021-06-05 16:15] LABS: Strep Scrn Group A (Rapid) Negative (Negative)
== END ==
PROVIDERS: PCP Nurse Practitioner; Visit Provider Nurse Practitioner
DX: U07.1 COVID-19 (principal)
CPT/HCPCS: 36415; 85025; 87275; 87276; 87430; C9803; U0003; U0005